=== PATIENT | female | born 1945 | race American Indian/Alaskan Native ===

== ENCOUNTER 2016-12-30 16:24 | Emergency (ER) | payer MEDICARE ==
--- NOTE | 2016-12-30 18:39 | Emergency Department Report ---
HPI - General Chief Complaint: Medical Clearance Time Seen by Provider: 12/30/16 18:28 - HPI HPI: Room 16 The patient is a chief complaint schizophrenia. Patient was brought in under a 1013 was signed by [facility] the documents unable to care for self (not taking care of ADLs), refusing to eat due to mental state. History of schizophrenia- noncompliance with meds/treatment. Symptoms of depression/anxiety. Presents and eminently life endangering crisis to self because she is unable to care for her own health and safety for example: Speaking in words salad at times, paranoia, pacing at night." When asked how she is feeling the patient replies "I feel okay. I feel all right." Patient denies suicidal or homicidal ideation. Patient is equivocal when asked about auditory hallucinations. Patient denies visual hallucinations. Patient states she has not been taking her schizophrenia medication Location: Mental state Duration: Unknown Quality: [see above] Severity: Moderate Modifying factors: [see above] Context: [see above] Mode of transportation: [not driving] ED Past Medical Hx - Past Medical History Previous Medical History?: Yes Hx Hypertension: Yes Hx Pulmonary Embolism: Yes (Bipolar, Schizophrenia, depression) - Surgical History Past Surgical History?: No - Family History Family history: no significant - Social History Smoking Status: Never Smoker Substance Use Type: None ED Review of Systems ROS: Stated complaint: DEPRESSION Other details as noted in HPI Comment: All other systems reviewed and negative Constitutional: denies: chills, fever Eyes: denies: eye pain, eye discharge, vision change ENT: denies: ear pain, throat pain Respiratory: denies: cough, shortness of breath, wheezing Cardiovascular: denies: chest pain, palpitations Endocrine: no symptoms reported Gastrointestinal: denies: abdominal pain, nausea, diarrhea Genitourinary: denies: urgency, dysuria, discharge Musculoskeletal: denies: back pain, joint swelling, arthralgia Skin: denies: rash, lesions Neurological: denies: headache, weakness, paresthesias Psychiatric: auditory hallucinations. denies: visual hallucinations, homicidal thoughts, suicidal thoughts Hematological/Lymphatic: denies: easy bleeding, easy bruising Physical Exam - Physical Exam Vital Signs: Vital Signs 12/30/16 16:55 Temperature 97.2 F L Pulse Rate 90 Respiratory 16 Rate Blood Pressure 115/70 O2 Sat by Pulse 95 Oximetry Physical Exam: GENERAL: The patient is well-developed female lying on stretcher not appearing to be in acute distress. Patient has flat affect HEENT: Normocephalic. Atraumatic. Extraocular motions are intact. Patient has moist mucous membranes. NECK: Supple. No meningitic signs are noted. Trachea midline CHEST/LUNGS: Clear to auscultation. There is no respiratory distress noted. HEART/CARDIOVASCULAR: Regular. There is no tachycardia. There is no gallop rub or murmur. ABDOMEN: Abdomen is soft, nontender. Patient has normal bowel sounds. There is no abdominal distention. SKIN: There is no rash. There is no edema. There is no diaphoresis. NEURO: The patient is awake and alert cranial nerves II through XII grossly intact. The patient is cooperative. The patient has no focal neurologic deficits. The patient has normal speech MUSCULOSKELETAL: There is no evidence of acute injury. ED Course Vital Signs 12/30/16 16:55 Temperature 97.2 F L Pulse Rate 90 Respiratory 16 Rate Blood Pressure 115/70 O2 Sat by Pulse 95 Oximetry ED Medical Decision Making - Lab Data Result diagrams: 12/30/16 18:44 12/30/16 18:44 Laboratory Tests 12/30/16 12/30/16 12/30/16 18:44 18:44 18:44 WBC 9.7 RBC 6.36 H Hgb 15.9 H Hct 49.6 H MCV 78 L MCH 25 L MCHC 32 RDW 14.5 Plt Count 155 Lymph % (Auto) 19.2 [place] % (Auto) 4.8 Eos % (Auto) 0.3 Baso % (Auto) 0.4 Lymph # 1.9 [place] # 0.5 Eos # 0.0 Baso # 0.0 Seg Neutrophils % 75.3 H Seg Neutrophils # 7.3 Sodium 144 Potassium 3.3 L Chloride 99.7 Carbon Dioxide 30 Anion Gap 18 BUN 11 Creatinine 0.5 L Estimated GFR > 60 BUN/Creatinine Ratio 22.00 Glucose 129 H Calcium 9.9 Plasma/Serum Alcohol < 0.01 - Differential Diagnosis schizophrenia Critical care attestation.: If time is entered above; I have spent that time in minutes in the direct care of this critically ill patient, excluding procedure time. ED Disposition Clinical Impression: Schizophrenia Disposition: DC/TX PSY HOSP/PSY UNIT Is pt being admited?: No Does the pt Need Aspirin: No Condition: Stable Referrals: PRIMARY CARE, [Primary Care Provider] - 3-5 Days Time of Disposition: 18:42 (awaiting acceptance)
[2016-12-30 19:21] LABS: Basophils % (Auto) 0.4 % (0.0-1.8); Eosinophils % (Auto) 0.3 % (0.0-4.3); Hematocrit 49.6 % (30.3-42.9); Hemoglobin 15.9 gm/dl (10.1-14.3); Mean Corpuscular HGB Conc 32 % (30-34); Mean Corpuscular Volume 78 fl (79-97); Platelet Count 155 K/mm3 (140-440); Red Blood Count 6.36 M/mm3 (3.65-5.03); Red Cell Distribution Width 14.5 % (13.2-15.2); White Blood Count 9.7 K/mm3 (4.5-11.0)
[2016-12-30 19:40] LABS: Mean Corpuscular Hemoglobin 25 pg (28-32)
[2016-12-30 20:02] LABS: Anion Gap 18 mmol/L; Blood Urea Nitrogen 11 mg/dL (7-17); Calcium 9.9 mg/dL (8.4-10.2); Carbon Dioxide 30 mmol/L (22-30); Chloride 99.7 mmol/L (98-107); Glucose 129 mg/dL (65-100); Potassium 3.3 mmol/L (3.6-5.0); Sodium 144 mmol/L (137-145)
[2016-12-30] MEDS ORDERED: K-DUR PO ONE (21:05)
[2016-12-31 07:12] LABS: Urine Drugs of Abuse Note Disclamer
[2016-12-31 07:31] LABS: Bacteria,Urine 1+ /HPF (Negative); Bilirubin,Urine NEG (Negative); Blood,Urine NEG (Negative); Ketones,Urine TR mg/dL (Negative); Leukocyte Esterase,Urine TR (Negative); Mucus,Urine 3+ /HPF; Nitrite,Urine NEG (Negative)
--- NOTE | 2016-12-31 10:02 | Consultation ---
History of Present Illness - Reason for Consult Consult date: 12/31/16 Reason for consult: Mental Health Evaluation Requesting physician: TAMELA HERRING - Chief Complaint Chief complaint: "I guess I am okay" - History of Present Psychiatric Illness 71 y.o. AA female presenting to [facility] because she is unable to care for self ( capacity). Patient was brought in under a [address] [facility] stating that the patient refusing to eat due to her mental state. Today patient is calm and cooperative at this time. She is A/O x 2 (person and place). She stated that she ate her breakfast, but it was not "good." She stated that she resides with one of her sons (Ramos Vanegas). Patient could not tell me her son's number at this time. She did admit to having schizophrenia, but could not tell me the last time she took medication for her mental illness. She stated hearing voices sometimes. Patient was able to recall 3/3 numbers (2, 8, 19) within 5 mins, spell the word WORLD backward with a delay, and ID the current President of the [employer]. She denies SI/HI's, AVH's, being depressed, or sleep disturbance. She denies recreational drug use or alcohol consumption (etoh). Past psychiatric history - Past Medical History Past Medical History: hypertension Past Surgical History: No surgical history - past Psychiatric treatment and history Psych: Bipolar, Schizophrenia psychiatric treatment history: Unable to obtain. Unable to obtain gallito allen hx. - Social History Social history: lives with family (Per patient, "I live with my son.") Mental Status Exam - Vital signs Last Vital Signs Temp 98.8 F 12/31/16 09:56 Pulse 95 H 12/31/16 09:56 Resp 18 12/31/16 09:56 BP 132/81 12/31/16 09:56 Pulse Ox 98 12/31/16 09:56 - Exam Narrative exam: ROS (+) disorganized MSE: Appearance: calm, cooperative Behavior: poor eye contact Speech: low rate and tone Mood: "okay" Affect: mood congruent Thought Process: tangential Thought Content: denies SI/HI's and AVH's Motor Activity: lying in bed Cognition: a/o x2 Insight: limited Judgment: limited Results Result Diagrams: 12/30/16 18:44 12/30/16 18:44 Abnormal lab results 12/30/16 12/30/16 12/31/16 Range/Units 18:44 18:44 07:00 RBC 6.36 H (3.65-5.03) M/mm3 Hgb 15.9 H (10.1-14.3) gm/dl Hct 49.6 H (30.3-42.9) % MCV 78 L (79-97) fl MCH 25 L (28-32) pg Seg Neutrophils % 75.3 H (40.0-70.0) % Potassium 3.3 L (3.6-5.0) mmol/L Creatinine 0.5 L (0.7-1.2) mg/dL Glucose 129 H (65-100) mg/dL Urine WBC (Auto) 7.0 H (0.0-6.0) /HPF All other labs normal. Assessment and Plan Assessment and plan: Impression: Hx of Schizophrenia. 71 y.o. AA female presenting to [facility] because she is unable to care for self (capacity). Patient was brought in under a [address] [facility] stating that the patient refusing to eat due to her mental state. Today patient is calm and cooperative at this time. She is A/O x 2 (person and place). She stated that she ate her breakfast, but it was not "good." Denies SI/ HI's and AVH's. Potassium 3.3 on admission, but patient was given 40 MEQ of K- DUR. DD: R/O Bipolar, Depressive DO Recommendation/Plan: Continue 1013 with placement to [facility].
[2016-12-31 15:40] VITALS: BP 140/95
== END 2016-12-31 15:44 ==
LOC: ED 16:24
DX: F20.9 Schizophrenia, unspecified (principal); I10 Essential (primary) hypertension; F31.9 Bipolar disorder, unspecified
CPT/HCPCS: 36415; 80048; 80307; 81001; 85025; 99285; G0480; 80320

== ENCOUNTER 2017-01-14 01:44 | Emergency (ER) | payer MEDICARE ==
[2017-01-14 02:57] VITALS: BP 128/73
--- NOTE | 2017-01-14 03:18 | Emergency Department Report ---
ED Female HPI - General Chief complaint: Urogenital-Female Stated complaint: UTERINE PROLAPSE Time Seen by Provider: 01/14/17 03:01 Source: family, EMS Mode of arrival: Stretcher Limitations: Altered Mental Status - History of Present Illness Initial comments: 71-year-old female presents to the emergency department via EMS from [facility] for evaluation of a prolapsed uterus. Per report, nursing staff and [facility] went to change the patient's brief and noted a prolapsed uterus. The on- call physician requested the patient be brought to the emergency department. Patient's family states that this has been ongoing problem for the patient. She was scheduled to have surgery for this approximately 2 years ago, but this never took place. There are no other complaints. -: Gradual, year(s) Location: labia Severity scale (0 -10): 0 Consistency: constant Improves with: none Worsens with: none Associated Symptoms: denies other symptoms ED Review of Systems ROS: Stated complaint: UTERINE PROLAPSE Other details as noted in HPI Comment: All other systems reviewed and negative Genitourinary: as per HPI (uterine prolapse) ED Past Medical Hx - Past Medical History Previous Medical History?: Yes Hx Hypertension: Yes Hx Diabetes: Yes Hx Psychiatric Treatment: Yes (Bipolar, Schizophrenia, depression) - Surgical History Past Surgical History?: No - Family History Family history: no significant - Social History Smoking Status: Unknown if ever smoked ED Physical Exam - General Limitations: Altered Mental Status General appearance: alert, in no apparent distress - Head Head exam: Present: atraumatic, normocephalic - Eye Eye exam: Present: normal appearance, PERRL, EOMI - ENT ENT exam: Present: normal exam, normal orophraynx, mucous membranes moist - Neck Neck exam: Present: normal inspection, full ROM. Absent: tenderness - Respiratory Respiratory exam: Present: normal lung sounds bilaterally. Absent: respiratory distress - Cardiovascular Cardiovascular Exam: Present: regular rate, normal rhythm, normal heart sounds - GI/Abdominal GI/Abdominal exam: Present: soft, normal bowel sounds. Absent: distended, tenderness - External exam: Present: other (external exam informed with him a nursing audio engineer present. Prolapsed uterus noted extending approximately 2 cm externally.) - Extremities Exam Extremities exam: Present: normal inspection, full ROM. Absent: tenderness - Back Exam Back exam: Present: normal inspection, full ROM. Absent: tenderness - Neurological Exam Neurological exam: Present: alert, other (patient is cooperative but is not speaking). Absent: motor sensory deficit - Skin Skin exam: Present: warm, dry, intact ED Course Vital Signs 01/14/17 01:56 Pulse Rate 70 Respiratory 20 Rate Blood Pressure 128/73 [Left] O2 Sat by Pulse 98 Oximetry ED Medical Decision Making - Medical Decision Making Physical exam findings were discussed with Dr. Jackman, STERILE TECH. There is no indication for urgent or emergent treatment at this time. Patient will be discharged back to [facility] to follow up with Dr. Jackman as an outpatient. - Differential Diagnosis uterine prolapse Critical care attestation.: If time is entered above; I have spent that time in minutes in the direct care of this critically ill patient, excluding procedure time. ED Disposition Clinical Impression: Uterine prolapse Disposition: DC/TX PSY HOSP/PSY UNIT Is pt being admited?: No Condition: Stable Instructions: Uterine Prolapse (ED) Referrals: GEO JACKMAN MD [Staff Physician] - 3-5 Days Time of Disposition: 03:27
== END 2017-01-14 03:38 ==
LOC: ED 01:44
DX: N81.4 Uterovaginal prolapse, unspecified (principal); I10 Essential (primary) hypertension; E11.9 Type 2 diabetes mellitus without complications; F31.9 Bipolar disorder, unspecified; F20.9 Schizophrenia, unspecified
CPT/HCPCS: 99283; 99285